=== PATIENT | female | born 1970 | race Caucasian/White ===

== ENCOUNTER 2021-10-22 15:03 | Outpatient (CLI) | payer MEDICAID, SELFPAY ==
--- NOTE | 2021-10-22 15:25 | US_ITS ---
WS: [id number] INDICATION: Pérez's neuroma TECHNIQUE: Ultrasound soft tissue FINDINGS: Ultrasound soft tissue area of concern LEFT foot. Ovoid hypoechoic area interposed between the 1st and 2nd metatarsals measuring 5.7 x 3.6 mm suspicious for Pérez's neuroma. Recommend clinica l correlation with area of pain. Remainder of the intertarsal spaces are normal. US/US soft tissue/extremity [id number] IMPRESSION: Ovoid hypoechoic area between the 1st and 2nd metatarsals is nonspe cific but suspicious for aMorton's neuroma. Recommend correlation with area of pain or concern. Remainder normal.
== END 2021-10-22 15:04 | disposition home or self-care (01) ==
LOC: RAD 15:07
PROVIDERS: PCP Family Medicine; Visit Provider Podiatrist Foot & Ankle Surgery
DX: M77.40 Metatarsalgia, unspecified foot (principal)
CPT/HCPCS: 76882

== ENCOUNTER → 2021-10-27 14:43 | Outpatient (BNVA) | payer MEDICAID, SELFPAY | PROVIDERS: PCP Family Medicine; Visit Provider Emergency Medicine | DX: S99.921A Unspecified injury of right foot, initial encounter (principal); X58.XXXA Exposure to other specified factors, initial encounter | CPT/HCPCS: 73630 ==

== ENCOUNTER → 2023-08-08 09:56 | Outpatient (BNVA) | payer MEDICAID, SELFPAY | PROVIDERS: PCP Family Medicine; Visit Provider Emergency Medicine | DX: R06.02 Shortness of breath (principal) | CPT/HCPCS: 71046 ==

== ENCOUNTER → 2024-12-27 08:22 | Outpatient (BNVA) | payer MEDICAID, SELFPAY | PROVIDERS: PCP Family Medicine; Visit Provider Surgery | DX: R10.13 Epigastric pain (principal); R11.2 Nausea with vomiting, unspecified | CPT/HCPCS: 99204 ==

== ENCOUNTER 2025-01-25 10:58 | Day surgery (SDC) | payer MEDICAID, SELFPAY ==
[2025-01-25 11:23] VITALS: BP 151/95; PULSE 77; RESP 18; TEMP 36.1; O2SAT 98
--- NOTE | 2025-01-25 11:25 | W.PM.OPSUD ---
Surgery/Procedure H&P Update DATE OF PROCEDURE: January 25, 2025 DATE H&P PERFORMED: 01/25/25 H&P UPDATE INFORMATION: I have reviewed H&P completed within last 30 days, I have examined patient prior to procedure, No changes to prior documentation, Changes to prior documentation as noted here and Risks and benefits of the procedure reviewed CHANGES TO PREVIOUS DOCUMENTATION: patient did not complete full bowel prep. will attempt colonoscopy although patient understands that if bowel prep is poor we will have to stop PLANNED PROCEDURE: Operation Date: 01/25/25 12:35 Proposed Procedures p EGD with Biopsy [id number] G0121, R10.9 Z12.11(Not Applicable) - Bladimir Stephenson MD s Colonoscopy(Not Applicable) - Bladimir Stephenson MD
--- NOTE | 2025-01-25 13:13 | P.ANESASSM_ITS ---
Pre-Anesthetic Assessment Height/Weight: Height 1.63 m Weight 79.379 kg Temp Pulse Resp BP Pulse Ox O2 Del Method 97.0 F L 77 18 151/95 98 Room Air 01/25/25 11:23 01/25/25 11:23 01/25/25 11:23 01/25/25 11:23 01/25/25 11:23 01/25/25 11:23 Preop Diagnosis: abdominal pain, screening Operation Date: 01/25/25 12:35 Proposed Procedures p EGD with Biopsy [id number] G0121, R10.9 Z12.11(Not Applicable) - Bladimir Stephenson MD s Colonoscopy(Not Applicable) - Bladimir Stephenson MD Familial anesthetic complications: none Was Beta David taken within 24 hours: N/A Was Clonidine taken within 24 hours: N/A Last intake: Intake Last Liquid Date 01/24/25 Last Liquid Time 20:00 Last Solid Date 01/24/25 Last Solid Time 08:00 Social No alcohol and No tobacco smokes marijuana Exam alert, oriented x 3 and clear to auscultation bilaterally Airway Mallampati: Class I Dentition: false (upper) Pulmonary None reported CV/HEM hole in heart per pt. None reported Hepatic None reported GI Gastroesophageal Reflux Disease (none on empty stomach, only after eating. ) Metabolic None reported Musc/skel None reported Neuropsych previous stroke, 30 years ago, some weakness on left side Anesthetic Plan ASA status: 3 Anesthesia: Anesthesia Evaluation and MAC Risk of > 500 ml blood loss (7ml/kg in children): Yes, adequate IV access and fluids planned Medications/Allergies Home Medications ?Medication ?Instructions ?Recorded ?Confirmed ?Last Taken ?Type albuterol sulfate 90 mcg/actuation 2 puff inhalation Q 6H PRN 08/08/23 01/23/25 Unknown Rx aerosol inhaler shortness of breath or wheez ing #8.5 grams Allergies Allergy/AdvReac Type Severity Reaction Status Date / Time tenecteplase (From TNKase) Allergy ALGY-Anaphy Verified 01/23/25 07:53 laxis Current Medications Generic Name Dose Route Start Last Admin Trade Name Freq PRN Reason Stop Dose Admin Sodium Chloride 1,000 mls @ 15 mls/hr 01/25/25 11:09 01/25/25 11:30 Sodium Chloride 0.9% IV 01/26/25 11:08 15 mls/hr .Q24H PRN Administration COLONOSCOPY FLUIDS PFSH Anesthesia Medical History (Updated 12/27/24 @ 09:05 by Bladimir Stephenson MD) Itching Tick bite Rhus dermatitis Social History Smoking and tobacco/nicotine status: tobacco/nicotine user, details unknown
[2025-01-25 14:16] VITALS: BP 143/90; PULSE 96; RESP 16; TEMP 36.1; O2SAT 97
[2025-01-25 14:26] VITALS: BP 151/84; PULSE 73; RESP 18; O2SAT 100
[2025-01-25 14:36] VITALS: BP 156/94; PULSE 77; RESP 18; O2SAT 99
--- NOTE | 2025-01-25 15:32 | ANE.PACU2 ---
Inpatient post-anesthesia follow up: Airway intact: Yes Vital signs: Temperature 97.0 F Pulse Rate 77 Respiratory Rate 18 Blood Pressure 156/94 Pulse Oximetry 99 Oxygen Delivery Me thod Room Air Oxygen Flow Rate Fraction of Inspir ed Oxygen Hydration adequate: Yes Nausea and vomiting: No Pain level: 1 Mental status: Baseline
--- NOTE | 2025-01-25 15:51 | PC.NURSE ---
cecum time 1400
== END 2025-01-25 15:10 | disposition home or self-care (01) ==
PROVIDERS: Visit Provider Surgery
PROC: 0DJ08ZZ Inspection of Upper Intestinal Tract, Via Natural or Artificial Opening Endoscopic (ICD-10-PCS; principal; 2025-01-25 12:35)
PROC: 0DJD8ZZ Inspection of Lower Intestinal Tract, Via Natural or Artificial Opening Endoscopic (ICD-10-PCS; CPT 45378; 2025-01-25 12:35)
DX: Z12.11 Encounter for screening for malignant neoplasm of colon (principal); R10.9 Unspecified abdominal pain; D12.8 Benign neoplasm of rectum; K44.9 Diaphragmatic hernia without obstruction or gangrene; K21.9 Gastro-esophageal reflux disease without esophagitis; F17.200 Nicotine dependence, unspecified, uncomplicated
CPT/HCPCS: 43239; 45380; 45385; 88305; J2704; J7030; J9999

== ENCOUNTER 2025-01-29 18:34 | Emergency (ER) | payer MEDICAID, SELFPAY ==
--- OUTSIDE RECORDS SUMMARY | 2019-03-15 07:00 | XMS_ITS | Continuity of Care Document ---
Author Organization [facility] Address [id number] [address] Phone Care Team Providers Care Healthcare Administrative Assistant Name Role Phone Unavailable Unavailable Unavailable Allergies, Adverse Reactions, Alerts Substance Reaction Status Criticality No Known Allergies Active No Inform ation Medications Medication Instructions Dosage Effective Dates (start - stop) Status Comments ZOLOFT (unknown strength) take 1 tablet by oral route every day Not Available - Active LAMICTAL (unknown strength) take 1 tablet by oral route every day Not Available - Active EPCLUSA (unknown strength) take 1 tablet by oral route every day Not Available - Active Procedures Procedure Date Limited Oral Evaluation Problem Focused Extraction, Erupted Tooth Or Exposed Antonia t (Elevati Extraction, Erupted Tooth Or Exposed Antonia t (Elevati Intraoral Periapical First Film Intraoral Periapical Each Additional Film EDR Approval Note Advance Directives Directive Yes / No Effective Date File Name No Information Encounters Encounter Description Practice Location Reason(s) For Visit Diagnoses Date Provider Providers Copied on Encounter [facility], [id number] [place], [place], [id number], [place] tel:[phone] [facility] Encounter for dental exam and cleaning w/o abnormal findings No Information Family History Family Member Type Diagnosis Age At Onset No Information Payers Payer name Insurance type Covered democrat ID Authoriza tion(s) No Information Social History Type Description Quantity Date Captured Comments Alcohol Use Details No Caffeine Use Details Unknown Tobacco Use Status Current non-smoker 19 Smoking Status Never smoker Non-Smoking Tobacco Use Details : No Details Available : No Details Available Sex Female Vital Signs Date / Time: Height Weight BMI Pulse Rate Blood Pressure Temperature Respiratory Rate Body Surface Area Head Circumference Head Circ. Percentile Wt./Hebert. Percentile BMI percentile Pulse Ox Inhaled Ox 12:20 PM 126/85 mm[Hg] Chief Complaint And Reason For Visit No Information Reason For Referral Reason For Referral No Information History Of Present Illness Encounter Date Complaint History Of Prese nt Illness No Information Functional Status Date Functional Assessmen t No Information Instructions Date Instruction Additional Infor mation No Information Assessments Type Assessment Date No Information Patient Care Teams Name Effective Dates (start - stop) Status Members No Information
[2025-01-29 18:40] VITALS: BP 145/67; PULSE 66; RESP 17; TEMP 36.8; O2SAT 99; BMI 30.2
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
--- OUTSIDE RECORDS SUMMARY | 2025-01-29 18:44 | XMS_ITS | Patient Health Record ---
Author Organization [facility] Address [address] [place], [place] [address] Care Team Providers Care Granite Cutter Apprentice Name Role Phone Adam Hughes MD Unavailable [phone] Adam Suero MD Unavailable Unavailable Reason For Referral No Information Plan Of Treatment No Information Insurance Providers Payer Name Payer Address Payer Phone Subscriber Number Group Number Insured Name Patient Relationship to Insured Coverage Start Date Coverage End Date [employer] [address] [facility] [address] [place] [id number] Brittni Ray Self - patient is the insured
--- OUTSIDE RECORDS SUMMARY | 2025-01-29 18:44 | XMS_ITS | Clinical Summary ---
Author Organization [facility] Address [address] [place] [address] Phone Care Team Providers Care Ditching Machine Engineer Name Role Phone Melvin Burns MD Primary Care Provider [phone] Allergies Active Allergy Reactions Criticality Noted Date Comments Ketorolac Unknown 11/26/2009 Rizatriptan Unknown 11/26/2009 Sumatriptan Unknown 11/26/2009 Tenecteplase Anaphylaxis High 03/28/2023 Tramadol Unknown 11/26/2009 Medications aspirin (MARY CHEWABLE) 81 mg Tablet, Chewable Take 1 Tablet (81 mg) by mouth daily with breakfast. 30 Tablet 1 3 Active Additional Information Patient not taking.Reported on 04/02/2023 propranoloL (INDERAL) 40 mg tablet Take 1 Tablet (40 mg) by mouth every 8 hours. 90 Tablet 1 3 Active divalproex (DEPAKOTE) 250 mg Delayed Release tablet Take 1 Tablet (250 mg) by mouth 2 times daily. 60 Tablet 1 3 Active Additional Information Patient not taking.Reported on 04/02/2023 topiramate (TOPAMAX) 100 mg tabletIndication s:Complicated migraine Take 100 mg by mouth 3 times daily. Active mupirocin (BACTROBAN) 2 % Ointment APPLY OINTMENT TOPICALLY TO AFFECTED AREA THREE TIMES DAILY FOR 7 DAYS 3 Active lisinopriL (PRINIVIL) 20 mg tablet Take 20 mg by mouth daily. 3 Active fluticasone propionate (FLONASE) 50 mcg/spray [place], Suspension nasal inhaler Administer 2 Sprays in each nostril daily. 3 Active diazePAM (VALIUM) 10 mg tablet Take 10 mg by mouth 2 times daily. Active cyclobenzaprine (FLEXERIL) 5 mg Tablet TAKE ONE TABLET BY MOUTH THREE TIMES DAILY FOR 14 DAYS NEEDED FOR MUSCLE PAIN 3 Active cloNIDine HCL (CATAPRES) 0.1 mg tabletIndication s:Insomnia, unspecified type Take 1 Tablet (0.1 mg) by mouth daily at bedtime. 30 Tablet 1 3 Active Additional Information Patient not taking.Reported on 08/27/2023 ergocalciferol (VITAMIN D2) 50,000 unit capsuleIndicatio ns:Vitamin D deficiency Take 1 Capsule (50,000 Units) by mouth every 7 days. 12 Capsule 1 3 Active busPIRone (BUSPAR) 10 mg tabletIndication s:Chronic anxiety Take 1 Tablet (10 mg) by mouth 3 times daily. 90 Tablet 3 4 Active sertraline (Zoloft) 25 mg tablet Take 1 Tablet (25 mg) by mouth daily. 30 Tablet 3 4 Active ondansetron (ZOFRAN) 8 mg Tablet take 1 tablet by mouth every 8 hours as needed for nausea and vomiting 20 Tablet 4 Active gabapentin (NEURONTIN) 100 mg capsuleIndicatio ns:Complicated migraine TAKE 1 CAPSULE BY MOUTH THREE TIMES DAILY 90 Capsule 4 Active Active Problems Problem Noted Date Diagnosed Date Complicated migraine 03/29/2023 Anaphylactic shock 03/28/2023 Angioedema 03/28/2023 Stridor 03/28/2023 Left-sided weakness 03/27/2023 Left sided numbness 03/27/2023 HTN (hypertension), benign 03/27/2023 Stroke-like symptom 03/27/2023 Received intravenous tissue plasminogen activator (tPA) in emergency department 03/27/2023 Tobacco abuse 09/22/2011 Substance abuse 11/26/2009 Encounters Date Type Department Care Team Description 12/03/[address] [address] Sabrina Price FNP Complicated migraine from Last 3 Months Immunizations Immunization Administration Dates Next Due (TDVAX)(7 YRS UP) TETANUS AN D DIPHTHERIA TOXOIDS, ADSORBED (2 LF OF TETANUS TOXOID AND 2 LF OF DIPHTHERIA TOXOID), 0.5ML (PF), IM 05/12/2006,10/23/2003 INFLUENZA VACCINE QUADRIVALENT 6 MOS UP PF IM Family History Medical History Relation Name Comments Breast Cancer Maternal Grandmother age un known Breast Cancer Paternal Aunt age unknown Breast Cancer Paternal Grandmother age un known Ovarian Cancer Neg Hx Relation Name Status Comments Maternal Grandmother Paternal Aunt Alive Paternal Grandmother Social History Tobacco Use Types Packs/Day Years Used Date Smoking Tobacco: Former Cigarettes Q uit: 06/07/2018 Smokeless Tobacco: Never Tobacco Cessation:Counseling Given: Not Answered Alcohol Use Standard Drinks/Week Comments Never 0 (1 standard drink = 0.6 oz pur e alcohol) Feeling Safe Answer Date Recorded Are you in a relationship wi th someone who hurts you emotionally and/or physically? 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 Gender Identity Not on file Sexual Orientation Not on file Last Filed Vital Signs Vital Sign Reading Time Taken Comments Blood Pressure 128/78 08/27/2023 3:00 PM CDT Pulse 71 08/27/2023 3:00 PM CDT Temperature 36.7 C (98.1 F) 08/27/2023 3:00 PM CDT Respiratory Rate 18 08/27/2023 3:00 PM CDT Oxygen Saturation 98% 08/27/2023 3:00 PM CDT Inhaled Oxygen Concentration - - Weight 82.2 kg (181 lb 3.2 oz) 08/27/2023 3:00 P M CDT Height 162.6 cm (5' 4 ) 08/27/2023 3:00 PM CDT Body Mass Index 31.1 08/27/2023 3:00 PM CDT Plan of Treatment Health Maintenance Due Date Last Done Comments HEPATITIS B VACCINES (1 of 3 - 19+ 3-dose series) 1989 Preventative Visit-Managed Medicaid 1989 HPV/Cotest (21-29) 1991 CERVICAL CANCER SCREENING 2000 HPV/Cotest (30-65) 2000 PAP SMEAR 2000 DTAP/TDAP/TD VACCINES (1 - Tdap) 05/13/2006 05/12/20 06, 10/23/2003 COLORECTAL SCREENING 2015 Colorectal Cancer Screening 2015 FIT-DNA Q 3 years 2015 FIT/FOBT Q 1 year 2015 Flex Sig/CT Colonography Q 5 years 2015 ZOSTER VACCINE (1 of 2) 2020 BREAST CANCER SCREENING 08/30/2024 08/31/2023 INFLUENZA VACCINE (#1) 2025 05/21/2023 Procedures Procedure Name Priority Date/Time Associated Diagnosis Comments MAMMO 3D RAFI SCREEN BILATERAL MOBILE Routine 08/31/2023 2:15 PM CDT Breast cancer screening by mammogram from Last 3 Months or Most Recently Relevant to Health Maintenance Results * MAMMO 3D SCREEN BILATERAL MOBILE (08/31/2023 2:15 PM CDT) Anatomical Region Laterality Modality Breast Bilateral Mammography Impressions 09/08/2023 5:52 PM CDT : No mammographic evidence of malignancy. BI-RADS ASSESSMENT: 1 - Negative RECOMMENDATION: Routine annual screening mammography. Narrative 09/08/2023 5:52 PM CDT EXAM: MAMMO SCRN BILAT 3D RAFI W OR WO CAD INDICATION: Screening COMPARISON: No comparisons were made when reading this study. BREAST COMPOSITION: There are scattered areas of fibroglandular density. FINDINGS: RIGHT BREAST: There are no suspicious masses, calcifications, or areas of architectural distortion. LEFT BREAST: There are no suspicious masses, calcifications, or areas of architectural distortion. Melvin Burns MD MAMMO ORDERABLES Final Result from Last 3 Months or Most Recently Relevant to Health Maintenance Insurance MEDICAID [place] Advance Directives For more information, please contact: [phone] * Full Code (Latest Code Status on File) Date Activated Date Inactivated Comments 03/27/2023 9:43 PM 03/31/2023 9:12 PM Care Teams Ditching Machine Engineer Relationship Specialty Start Date End Date Melvin Burns MD [address] [address] PCP - General Family Practice 09/01/23
--- NOTE | 2025-01-29 18:45 | ECG_ITS ---
[facility] Test Date: 2025-01-29 Pat Name: Brittni Ray Department: Room: Gender: Female White Shoe Ragger: : 1970 Requested By: Christian Silva Order Number: [id number] Dennis MD: Joesph Chandra M.D. Measurements Intervals [place] Rate: 62 P: 67 NH: 173 QRS: 50 QRSD: 90 T: 53 QT: 383 QTc: 389 Interpretive Statements SINUS RHYTHM Compared to ECG 06/02/2016 18:23:45 Sinus tachycardia no longer present Electronically Signed On 01-30-2025 08:04:10 CDT by Joesph Chandra M.D. [email or web address]
--- NOTE | 2025-01-29 18:49 | XRR_ITS ---
PROCEDURE INFORMATION: Exam: XR Chest Exam date and time: 01/29/2025 6:51 PM Age: 54 years old Clinical indication: Other: HTN; Additional info: Hypertension TECHNIQUE: Imaging protocol: Radiologic exam of the chest. Views: 1 view. Total images: 707 COMPARISON: CR XR chest 2V* [id number] 08/08/2023 10:11 AM FINDINGS: Lungs: Unremarkable. No consolidation. Lungs are well-aerated without focal pathologic pulmonary parenchymal process. Pleural spaces: No significant pleural effusion. No pneumothorax. Heart/Mediastinum: The heart is not enlarged. Vasculature: Aortic wall demonstrates mild atherosclerotic calcification. Bones/joints: No acute osseous abnormality. Mild generalized degenerative changes of the vertebral column characterized primarily by multilevel osteophyte formation, and degenerative facet arthrosis commensurate with patient's age. Soft tissues: Soft tissues are normal as visualized, demonstrating no masses or induration. Other findings: Right upper quadrant nonspecific surgical clips, likely prior cholecystectomy. XR/XR chest 1V portable [id number] IMPRESSION: 1. No acute cardiopulmonary disease or adverse interval change radiographically. 2. Generalized mild skeletal degenerative and other chronic/nonacute findings as described above.
--- NOTE | 2025-01-29 18:52 | ED_ITS ---
HPI - Headache 2 General: Chief Complaint: Headache Stated Complaint: Sent by Dr Arguello BP Time Seen by Provider: 01/29/25 18:50 History of Present Illness: 54-year-old female with a history of hyp ertension who presents emergency room with headache, intermittent mild chest pains and high blood pressure. She got to see her PCP who sent her to the emergency room. Her blood pressure there was over 175 systolic. Says she has been taking double her blood pressure medicines since Wednesday. She says this all started after she had a colonoscopy. She woke up the next day and was not feeling well and her blood pressures been elevated ever since Related Data Previous Rx's ?Medication ?Instructions ?Recorded albuterol sulfate 90 mcg/actuation 2 puff inhalation Q 6H PRN 08/08/23 aerosol inhaler shortness of breath or wheez ing #8.5 grams pantoprazole 40 mg tablet,delayed 40 mg PO DAILY #30 t abs 01/25/25 release Allergies Allergy/AdvReac Type Severity Reaction Status Date / Time tenecteplase (From TNKase) Allergy ALGY-Anaphy Verified 01/23/25 07:53 laxis clonidine AdvReac ADR-Gastrointestinal Verified 01/29/25 18:46 Upset Review of Systems 2 Narrative: Constitutional symptoms: Negative except as documented in HPI. Skin symptoms: Negative except as documented in HPI. Eye symptoms: Negative except as documented in HPI. ENMT symptoms: Negative except as documented in HPI. Respiratory symptoms: Negative except as documented in HPI. Cardiovascular symptoms: Negative except as documented in HPI. Gastrointestinal symptoms: Negative except as documented in HPI. Genitourinary symptoms: Negative except as documented in HPI. Musculoskeletal symptoms: Negative except as documented in HPI. Neurologic symptoms: Negative except as documented in HPI. Psychiatric symptoms: Negative except as documented in HPI. Endocrine symptoms: Negative except as documented in HPI. PFSH ED 2 PFSH: Medical History (Updated 01/29/25 @ 19:54 by Teresa Cherry MD) Itching Tick bite Rhus dermatitis Social History Smoking and tobacco/nicotine status: tobacco/nicotine user, details unknown Physical Exam 2 Narrative: EXAM NARRATIVE: General: Alert, no acute distress. Skin: Warm, dry. Head: Normocephalic, atraumatic. Neck: Supple, trachea midline. Eye: Extraocular movements are intact. Ears, nose, mouth and throat: mucosa moist. Cardiovascular: Regular, Normal peripheral perfusion. Respiratory: Lungs are clear to auscultation, respirations are non-labored, breath sounds are equal, Symmetrical chest wall expansion. Gastrointestinal: Soft, Nontender, Non distended Musculoskeletal: Normal ROM, no deformity. Neurological: Alert and oriented, No focal neurological deficit observed. Psychiatric: Cooperative, appropriate mood & affect. Course 2 Vital Signs: Vital signs: Vital Signs Temperature 98.3 F 01/29/25 18:40 Pulse Rate 62 01/29/25 19:34 Respiratory Rate 16 01/29/25 19:34 Blood Pressure 102/66 01/29/25 19:34 Pulse Oximetry 95 01/29/25 19:34 Oxygen Delivery Me thod Room Air 01/29/25 19:34 MDM - Headache Medical Decision Making Medical decision making: Differential diagnosis including but not limited to and based on the above HPI, review of systems and physical exam: Patient presents with hypertension: Essential hypertension. Stroke. acute coronary syndrome. kidney failure. congestive heart failure. anxiety. Orders placed to evaluate differential diagnosis based on the above differential, HPI and physical exam EKG: Time 1848. Rate 62. Normal sinus rhythm, No ST-T changes, no ectopy, normal CA & QRS intervals, This was reviewed and interpreted by myself the ER physician at 1852 Chest x-ray: No acute process. No infiltrate. No pneumothorax. This was reviewed and interpreted by myself the emergency room physician. I also reviewed the radiology report. Lab Review: Laboratory results were reviewed and interpreted by myself the emergency room physician. No leukocytosis. No anemia. No renal failure. Cardiac marker negative. proBNP is negative. I reviewed the patient's medical record. Reexamination: Patient's blood pressure has normalized without treatment here. Possibly secondary to her taking double her blood pressure medication at home. Her doctor started her on lisinopril HCTZ in the morning in addition to her lisinopril at night. This seems appropriate. Follow with her primary afterwards. No increased work of breathing. No hypoxemia. No fevers. No altered mental status. Assessment and plan: Hypertension - Discharged home - Discussed plan with patient. Answered any questions. - Evaluation and treatment of this problem were appropriate in the emergency setting. Lab Data 01/29/25 19:01 01/29/25 19:01 Radiology Impressions Chest X-Ray 01/29/25 18:49 IMPRESSION: 1. No acute cardiopulmonary disease or adverse interval change radiographically. 2. Generalized mild skeletal degenerative and other chronic/nonacute findings as described above. Laboratory Results WBC 10.30 10^3/uL (3.29-11.43) 01/29/25 19: RBC 4.15 10^6/uL (3.85-5.65) 01/29/25 19: Hgb 11.30 g/dL (11.27-16.99) 01/29/25 19: Hct 35.2 % (36-47) L 01/29/25 19: MCV 84.8 fl (85-98) L 01/29/25: MCH 27.2 pg (27-33) 01/29/25 19: MCHC 32.1 g/dL (30-55) 01/29/25 19: RDW 14.6 % (12.1-15.1) 01/29/25 19: Plt Count 329 10^3/cmm (157-399) 01/29/25 19: MPV 10.4 fL (7.4-10.4) 01/29/25 19:01 Neut % (Auto) 56.5 % 01/29/25 19: Lymph % (Auto) 33.7 % 01/29/25 19: [place] % (Auto) 5.9 % 01/29/25 19: Eos % (Auto) 3.1 % 01/29/25 19: Baso % (Auto) 0.6 % 01/29/25 19:01 Neut # (Auto) 5.82 10^3/uL (1.8-7.7) 01/29/25 19: Lymph # (Auto) 3.5 10^3/uL (0.8-4.8) 01/29/25 19: [place] # (Auto) 0.6 10^3/uL (0.2-0.9) 01/29/25 19:01 Eos # (Auto) 0.3 10^3/uL (0.0-0.8) 01/29/25 19:01 Baso # (Auto) 0.1 10^3/uL (0.0-0.1) 01/29/25 19:01 Nucleated RBC % (auto) 0 % 01/29/25 19: Nucleated RBCs # 0.0 /100WBC 01/29/25 19:01 Sodium 141 mmol/L (136-145) 01/29/25 19: Potassium 4.0 mmol/L (3.5-5.1) 01/29/25 19: Chloride 108 mmol/L (98-107) H 01/29/25 19: Carbon Dioxide 22 mmol/L (22-29) 01/29/25 19: Anion Gap 15.0 (5-19) 01/29/25 19: BUN 16 mg/dL (6-20) 01/29/25 19: Creatinine 0.6 mg/dL (0.5-0.9) 01/29/25 19: GFR Calculation 104.2 mL/min (90-130) 01/29/25 19: Glucose 93 mg/dL (65-115) 01/29/25 19: Calculated Osmolality 293 mOsm/kg (285-295) 01/29/25 19: Calcium 8.9 mg/dL (8.5-10.5) 01/29/25 19: Total Bilirubin 0.2 mg/dL (0.15-1.2) 01/29/25 19: AST 11 U/L (0-32) 01/29/25 19:01 ALT 10 U/L (0-33) 01/29/25 19: Alkaline Phosphatase 97 U/L (35-105) 01/29/25 19: Troponin T Baseline < 6 ng/L (0-10) 01/29/25 19:01 NT-Pro-B Natriuret Pep < 36 pg/mL (0-125) 01/29/25 19: Total Protein 6.3 g/dL (6.6-8.7) L 01/29/25 19: Albumin 4.1 g/dL (3.5-5.2) 01/29/25 19: Globulin 2.2 g/dL (1.3-4.6) 01/29/25 19:01 All radiology interpretation(s) finalized by discharge Discharge Plan Discharge Patient Disposition: Home Clinical Impression: Headache, Hypertension Condition: Stable Prescriptions: No Action albuterol sulfate 90 mcg/actuation HFA aerosol inhaler 2 puff inhalation Q6H PRN (Reason: shortness of breath or wheezing) Qty: 8.5 0RF pantoprazole 40 mg tablet,delayed release (DR/EC) 40 mg PO DAILY Qty: 30 0RF Discharge Orders: Discharge ED (Routine); Ordered 01/29/25 Ordered By: Teresa Cherry Discharge Diet: Usual diet Discharge Activity: Increase activity as tolerated Patient Instructions: Hypertension (ED), Opioid Safety, Pain Management, Patient Portal & Parish Instructions Activity Restrictions/Additional Instructions: Thank you for choosing [facility] for your healthcare needs today. You have been screened and evaluated and felt safe for discharge. Health conditions do change or evolve sometimes and as such it is important that you follow up with your Primary Doctor to be re checked, 3-5 days is a general good time frame for follow up. You are always welcome to return to the ED for re assessment if your symptoms are worsening or you have new concerns Print Language: Micronesian Coding Level of Care Code ED Oral Surgery Assistant for Jolene Negrete
[2025-01-29 19:04] VITALS: BP 116/71; PULSE 60; RESP 16; O2SAT 99
[2025-01-29 19:07] LABS: Hematocrit 35.2 % (36-47); Hemoglobin 11.30 g/dL (11.27-16.99); Mean Corpuscular HGB Conc 32.1 g/dL (30-55); Mean Corpuscular Hemoglobin 27.2 pg (27-33); Mean Corpuscular Volume 84.8 fl (85-98); Nucleated Red Blood Cells % 0 %; Platelet Count 329 10^3/cmm (157-399); Red Blood Count 4.15 10^6/uL (3.85-5.65); White Blood Count 10.30 10^3/uL (3.29-11.43)
[2025-01-29 19:34] VITALS: BP 102/66; PULSE 62; RESP 16; O2SAT 95
[2025-01-29 19:43] LABS: Troponin(5th) Baseline < 6 ng/L (0-10)
[2025-01-29 19:49] LABS: Alanine Aminotransferase 10 U/L (0-33); Albumin Level 4.1 g/dL (3.5-5.2); Alkaline Phosphatase 97 U/L (35-105); Anion Gap 15.0 (5-19); Aspartate Amino Transferase 11 U/L (0-32); Blood Urea Nitrogen 16 mg/dL (6-20); Calcium 8.9 mg/dL (8.5-10.5); Carbon Dioxide 22 mmol/L (22-29); Chloride 108 mmol/L (98-107); Creatinine Clr Calc Pharmacy 109.5701; Globulin 2.2 g/dL (1.3-4.6); Glucose 93 mg/dL (65-115); NT Pro B Type Natriuretic Pept < 36 pg/mL (0-125); Osmolality Calculated 293 mOsm/kg (285-295); Potassium 4.0 mmol/L (3.5-5.1); Sodium 141 mmol/L (136-145); Total Protein 6.3 g/dL (6.6-8.7)
[2025-01-29 20:09] VITALS: BP 123/87; PULSE 63; RESP 16; O2SAT 96
== END 2025-01-29 20:08 | disposition home or self-care (01) ==
PROVIDERS: Emergency Provider Emergency Medicine
DX: R51.9 Headache, unspecified (principal); I10 Essential (primary) hypertension
CPT/HCPCS: 36415; 71045; 80053; 83880; 84484; 85025; 93005; 99285

== ENCOUNTER → 2025-02-06 10:28 | Outpatient (BNVA) | payer MEDICAID, SELFPAY | PROVIDERS: Visit Provider Surgery | DX: Z09 Encounter for follow-up examination after completed treatment for conditions other than malignant neoplasm (principal) | CPT/HCPCS: 99213 ==